=== PATIENT | male | born 1955 | race Caucasian/White ===

== ENCOUNTER 2019-02-18 16:50 | Observation (INO) ==
[2019-02-18 17:25] LABS: Hematocrit 44.9 % (37.5-50.1); Hemoglobin 15.5 g/dL (12.9-16.9); Mean Corpuscular HGB Conc 34.5 g/dL (31.6-35.5); Mean Corpuscular Hemoglobin 30.8 pg (28.0-33.3); Mean Corpuscular Volume 89.3 fL (83.0-100.0); Platelet Count 172 K/mcL (140-400); Red Blood Count 5.03 M/mcL (4.19-5.50); Red Cell Distribution Width 12.4 % (11.5-14.5); White Blood Count 10.3 K/mcL (4.3-11.1)
[2019-02-18 17:33] LABS: INR 1.1; Prothrombin Time 12.3 Seconds (9.4-12.1)
[2019-02-18 17:36] LABS: Activated Partial Thrombo Time 30.6 Seconds (26.0-36.0)
[2019-02-18 17:49] LABS: BUN/Creatinine Ratio 24 (6-26); Blood Urea Nitrogen 20 mg/dL (8-23); Calcium 9.2 mg/dL (8.6-10.3); Carbon Dioxide 19 mEq/L (23-29); Chloride 100 mEq/L (98-107); Glucose 534 mg/dL (70-105); Osmolality,Calculated 297 (280-300); Potassium 4.7 mEq/L (3.5-5.1); Sodium 130 mEq/L (136-145); Troponin I < 0.03 ng/mL (< 0.04); eGFR For African Americans > 60 (> 60); eGFR For Non-African Americans > 60 (> 60)
[2019-02-18] MEDS ORDERED: 0.9 % Sodium Chloride 1,000 ML IVC ONE (18:15)
[2019-02-18] MEDS ORDERED: Insulin Human Regular 10 UNIT in 0.9 % Sodium Chloride 10 ML IV ONE (18:24)
--- NOTE | 2019-02-18 18:34 | Emergency Department Note ---
Disposition Clinical Impression: Ataxia, Stroke-like symptoms Disposition: Admitted As Inpatient Condition: Good Referrals: NONE,PCP [Primary Care Provider] - Forms: ED Satisfaction Letter, Work/School Release Time of Disposition: 19:40 General Adult HPI - General Chief complaint: ED General Medical Stated complaint: ams Time Seen by Provider: 02/18/19 16:56 Source: patient, family, EMS Mode of arrival: EMS Nursing Notes Reviewed: Yes Vital Signs Reviewed: Yes - History of Present Illness HPI Narrative: 64-year-old male presenting to the emergency department chief complaint of confusion. says this morning he woke up confused. Was seen earlier today and diagnosed with hypoglycemia due to his diabetes and discharged home. says that he still was not acting right. Around noon she found him at home and trying to use his insulin pen but was unable to use it because he did not know how it worked. She called EMS to bring him back to the hospital. When they arrived they asked him to sign his name and he uses the right hand even though he is left-handed. When he tried his left hand he was unable to find appropriately. Concern for strokelike symptoms and brought him here for further evaluation. Patient denies any complaints at this time. Denies any chest pain, shortness of breath or recent illnesses. Pain Scale: 0 - Related Data Allergies Allergy/AdvReac Type Severity Reaction Status Date / Time No Known Allergies Allergy Verified 02/18/19 10:20 All systems ED: reviewed and negative except as stated. Constitutional: Denies: fever Eyes: Reports: as per HPI ENT ED: Reports: as per HPI Cardiovascular: Denies: chest pain Respiratory: Denies: dyspnea Gastrointestinal: Denies: abdominal pain Genitourinary: Reports: as per HPI Musculoskeletal: Reports: as per HPI Integumentary: Reports: as per HPI Neurological: Reports: confusion Psychiatric: Reports: as per HPI Endocrine: Reports: as per HPI Hematological/Lymphatic: Reports: as per HPI Allergic/Immunologic: Reports: as per HPI Past Medical History - Past Medical History Attestation: Yes The following information was validated with the patient. Medical history: Reports: diabetes Psychiatric history: Reports: depression - Social History Smoking Status: Current every day smoker Smokeless Tobacco Status: No Alcohol use: Reports: none Drug use: Reports: none Physical Exam - General Limitations: no limitations General appearance: alert, in no apparent distress - Head Head exam: atraumatic, normocephalic, normal inspection - Eye Eye exam: Present: PERRL, EOMI. Absent: scleral icterus - ENT ENT exam: mucous membranes moist - Neck Neck exam: Present: full ROM - Chest Chest inspection: Present: symmetric chest wall rise - Respiratory Respiratory exam: Present: normal lung sounds bilaterally. Absent: respiratory distress, wheezes - Cardiovascular Cardiovascular exam: Present: regular rate, normal rhythm, normal heart sounds - Abdominal Exam Abdominal exam: Present: soft, Non-Tender. Absent: distention, guarding, rebound - Extremities Exam Extremities exam: Present: full ROM - Neurological Exam Neurological exam: Present: alert, oriented X3 - Psychiatric Psychiatric exam: Present: normal affect - Skin Skin exam: Present: warm Course Course Narrative: 64-year-old male presenting with ataxia and altered mental status. In the room he is alert and oriented 3 and hemodynamically stable. Not altered for me. His physical exam is concerning for ataxia on the left arm. NIH of 1. Otherwise physical exam is benign. Concern for stroke. Since patient woke up with these symptoms stroke alert was not called. We will perform a CT of the head and basic laboratory analysis. Disposition most likely admission but pending results. Patient agrees with this plan. - Reevaluation(s) Reevaluation #1: Patient CT shows no acute abnormality. Labs shows hyperglycemia but VBG does not show acidemia. We will plan to admit the patient to medicine for further evaluation of stroke like symptoms. Patient agrees with this plan. He remains alert and oriented 3 and hemodynamically stable. 10 units of insulin was also given. Vital Signs Temperature 99.2 F 02/18/19 16:57 Pulse Rate 95 02/18/19 16:57 Respiratory Rate 18 02/18/19 16:57 Blood Pressure 165/82 02/18/19 16:57 O2 Sat by Pulse Oximetry 97 02/18/19 16:57 Temperature 99.2 F 02/18/19 16:57 Pulse Rate 77 02/18/19 19:05 Respiratory Rate 18 02/18/19 19:05 Blood Pressure 134/76 02/18/19 19:05 O2 Sat by Pulse Oximetry 97 02/18/19 19:06 Oxygen Delivery Oxygen Delivery Room Air Medical Decision Making - Lab Data Result diagrams: 02/18/19 17:10 02/18/19 17:10 Lab Results 02/18/19 02/18/19 02/18/19 Range/Units 16:57 16:58 17:10 WBC 10.3 (4.3-11.1) K/mcL RBC 5.03 (4.19-5.50) M/mcL Hgb 15.5 (12.9-16.9) g/dL Hct 44.9 (37.5-50.1) % MCV 89.3 (83.0-100.0) fL MCH 30.8 (28.0-33.3) pg MCHC 34.5 (31.6-35.5) g/dL RDW 12.4 (11.5-14.5) % Plt Count 172 (140-400) K/mcL MPV 11.0 (9.4-12.4) fL PT (9.4-12.1) Seconds INR APTT (26.0-36.0) Seconds VBG pH (7.32-7.42) pH Units VBG pCO2 (41-51) mmHg VBG pO2 (25-50) mmHg VBG HCO3 (21-27) mEq/L Sodium (136-145) mEq/L Potassium (3.5-5.1) mEq/L Chloride (98-107) mEq/L Carbon Dioxide (23-29) mEq/L BUN (8-23) mg/dL Creatinine (0.70-1.30) mg/dL Est GFR ( Amer) (> 60) Est GFR (Non-Af Amer) (> 60) BUN/Creatinine Ratio (6-26) Glucose (70-105) mg/dL POC Glucose 453 H* 469 H* (70-99) mg/dL Calculated Osmolality (280-300) Calcium (8.6-10.3) mg/dL Troponin I (< 0.04) ng/mL Beta-Hydroxybutyric Acd (0.02-0.27) mmol/L Urine Color (Yellow) Urine Clarity (Clear) Urine pH (5.0-8.0) pH Units Ur Specific [place] (1.010-1.025) Urine Protein (Neg-Trace) mg/dL Urine Glucose (UA) (Normal) mg/dL Urine Ketones (Negative) mg/dL Urine Blood (Negative) Urine Nitrite (Negative) Urine Bilirubin (Negative) Urine Urobilinogen (Normal) mg/dL Ur Leukocyte Esterase (Negative) Ur Culture Indicated? (NO) 02/18/19 02/18/19 02/18/19 Range/Units 17:10 17:10 18:24 WBC (4.3-11.1) K/mcL RBC (4.19-5.50) M/mcL Hgb (12.9-16.9) g/dL Hct (37.5-50.1) % MCV (83.0-100.0) fL MCH (28.0-33.3) pg MCHC (31.6-35.5) g/dL RDW (11.5-14.5) % Plt Count (140-400) K/mcL MPV (9.4-12.4) fL PT 12.3 H (9.4-12.1) Seconds INR 1.1 APTT 30.6 (26.0-36.0) Seconds VBG pH (7.32-7.42) pH Units VBG pCO2 (41-51) mmHg VBG pO2 (25-50) mmHg VBG HCO3 (21-27) mEq/L Sodium 130 L (136-145) mEq/L Potassium 4.7 (3.5-5.1) mEq/L Chloride 100 (98-107) mEq/L Carbon Dioxide 19 L (23-29) mEq/L BUN 20 (8-23) mg/dL Creatinine 0.84 (0.70-1.30) mg/dL Est GFR ( Amer) > 60 (> 60) Est GFR (Non-Af Amer) > 60 (> 60) BUN/Creatinine Ratio 24 (6-26) Glucose 534 H* (70-105) mg/dL POC Glucose (70-99) mg/dL Calculated Osmolality 297 (280-300) Calcium 9.2 (8.6-10.3) mg/dL Troponin I < 0.03 (< 0.04) ng/mL Beta-Hydroxybutyric Acd 1.05 H (0.02-0.27) mmol/L Urine Color (Yellow) Urine Clarity (Clear) Urine pH (5.0-8.0) pH Units Ur Specific [place] (1.010-1.025) Urine Protein (Neg-Trace) mg/dL Urine Glucose (UA) (Normal) mg/dL Urine Ketones (Negative) mg/dL Urine Blood (Negative) Urine Nitrite (Negative) Urine Bilirubin (Negative) Urine Urobilinogen (Normal) mg/dL Ur Leukocyte Esterase (Negative) Ur Culture Indicated? (NO) 02/18/19 02/18/19 Range/Units 18:43 19:10 WBC (4.3-11.1) K/mcL RBC (4.19-5.50) M/mcL Hgb (12.9-16.9) g/dL Hct (37.5-50.1) % MCV (83.0-100.0) fL MCH (28.0-33.3) pg MCHC (31.6-35.5) g/dL RDW (11.5-14.5) % Plt Count (140-400) K/mcL MPV (9.4-12.4) fL PT (9.4-12.1) Seconds INR APTT (26.0-36.0) Seconds VBG pH 7.38 (7.32-7.42) pH Units VBG pCO2 36 L (41-51) mmHg VBG pO2 91 H (25-50) mmHg VBG HCO3 21 (21-27) mEq/L Sodium (136-145) mEq/L Potassium (3.5-5.1) mEq/L Chloride (98-107) mEq/L Carbon Dioxide (23-29) mEq/L BUN (8-23) mg/dL Creatinine (0.70-1.30) mg/dL Est GFR ( Amer) (> 60) Est GFR (Non-Af Amer) (> 60) BUN/Creatinine Ratio (6-26) Glucose (70-105) mg/dL POC Glucose (70-99) mg/dL Calculated Osmolality (280-300) Calcium (8.6-10.3) mg/dL Troponin I (< 0.04) ng/mL Beta-Hydroxybutyric Acd (0.02-0.27) mmol/L Urine Color Yellow (Yellow) Urine Clarity Clear (Clear) Urine pH 6.5 (5.0-8.0) pH Units Ur Specific [place] 1.030 H (1.010-1.025) Urine Protein Negative (Neg-Trace) mg/dL Urine Glucose (UA) >=1000 H (Normal) mg/dL Urine Ketones 40 H (Negative) mg/dL Urine Blood Negative (Negative) Urine Nitrite Negative (Negative) Urine Bilirubin Negative (Negative) Urine Urobilinogen Normal (Normal) mg/dL Ur Leukocyte Esterase Negative (Negative) Ur Culture Indicated? NO (NO) NIH Stroke Scale - Level of Consciousness LOC: Alert - LOC Questions LOC Questions: Answers both correctly - LOC Commands LOC Commands: Performs both correctly - Best Gaze Best Gaze: Normal - Visual Visual: No visual loss - Facial Palsy Facial Palsy: Normal - Motor Arms Motor Arm-Left: No drift for 10 seconds Motor Arm-Right: No drift for 10 seconds - Motor Legs Motor Leg-Left: No drift for 5 seconds Motor Leg-Right: No drift for 5 seconds - Limb Ataxia Limb Ataxia: Present in ONE limb - Sensory Sensory: Normal - Best Language Best Language: No aphasia - Dysarthria Dysarthria: Normal - Extinction and Inattention Extinction and Inattention: Normal - NIHSS Total Score NIHSS Total Score: 1
[2019-02-18 18:46] LABS: VBG HCO3 21 mEq/L (21-27); VBG PCO2 36 mmHg (41-51); VBG PH 7.38 pH Units (7.32-7.42); VBG PO2 91 mmHg (25-50)
[2019-02-18 19:22] LABS: Bilirubin,Urine Negative (Negative); Blood,Urine Negative (Negative); Clarity,Urine Clear (Clear); Color,Urine Yellow (Yellow); Glucose,Urine (UA) >=1000 mg/dL (Normal); Ketones,Urine 40 mg/dL (Negative); Leukocyte Esterase,Urine Negative (Negative); Nitrite,Urine Negative (Negative); PH,Urine 6.5 pH Units (5.0-8.0); Protein,Urine Negative (Neg-Trace); Urobilinogen,Urine Normal (Normal)
--- NOTE | 2019-02-18 19:41 | Emergency Department Note ---
Disposition Clinical Impression: Hyperglycemia CVA (cerebral vascular accident) Qualifiers: CVA mechanism: unspecified Qualified Code(s): I63.9 - Cerebral infarction, u nspecified Disposition: Admitted As Inpatient Condition: Good Referrals: NONE,PCP [Primary Care Provider] - Forms: ED Satisfaction Letter, Work/School Release Time of Disposition: 19:42 General Adult HPI - General Chief complaint: ED General Medical Stated complaint: ams Time Seen by Provider: 02/18/19 16:56 - History of Present Illness Pain Scale: 0 - Related Data Allergies Allergy/AdvReac Type Severity Reaction Status Date / Time No Known Allergies Allergy Verified 02/18/19 10:20 Past Medical History - Past Medical History Medical history: Reports: diabetes Psychiatric history: Reports: depression - Social History Smoking Status: Current every day smoker Smokeless Tobacco Status: No Alcohol use: Reports: none Drug use: Reports: none Physical Exam - General General appearance: alert, in no apparent distress Course Vital Signs Temperature 99.2 F 02/18/19 16:57 Pulse Rate 95 02/18/19 16:57 Respiratory Rate 18 02/18/19 16:57 Blood Pressure 165/82 02/18/19 16:57 O2 Sat by Pulse Oximetry 97 02/18/19 16:57 Temperature 99.2 F 02/18/19 16:57 Pulse Rate 77 02/18/19 19:05 Respiratory Rate 18 02/18/19 19:05 Blood Pressure 134/76 02/18/19 19:05 O2 Sat by Pulse Oximetry 97 02/18/19 19:06 Oxygen Delivery Oxygen Delivery Room Air Medical Decision Making - Lab Data Result diagrams: 02/18/19 17:10 02/18/19 17:10 Lab Results 02/18/19 02/18/19 02/18/19 Range/Units 16:57 16:58 17:10 WBC 10.3 (4.3-11.1) K/mcL RBC 5.03 (4.19-5.50) M/mcL Hgb 15.5 (12.9-16.9) g/dL Hct 44.9 (37.5-50.1) % MCV 89.3 (83.0-100.0) fL MCH 30.8 (28.0-33.3) pg MCHC 34.5 (31.6-35.5) g/dL RDW 12.4 (11.5-14.5) % Plt Count 172 (140-400) K/mcL MPV 11.0 (9.4-12.4) fL PT (9.4-12.1) Seconds INR APTT (26.0-36.0) Seconds VBG pH (7.32-7.42) pH Units VBG pCO2 (41-51) mmHg VBG pO2 (25-50) mmHg VBG HCO3 (21-27) mEq/L Sodium (136-145) mEq/L Potassium (3.5-5.1) mEq/L Chloride (98-107) mEq/L Carbon Dioxide (23-29) mEq/L BUN (8-23) mg/dL Creatinine (0.70-1.30) mg/dL Est GFR ( Amer) (> 60) Est GFR (Non-Af Amer) (> 60) BUN/Creatinine Ratio (6-26) Glucose (70-105) mg/dL POC Glucose 453 H* 469 H* (70-99) mg/dL Calculated Osmolality (280-300) Calcium (8.6-10.3) mg/dL Troponin I (< 0.04) ng/mL Beta-Hydroxybutyric Acd (0.02-0.27) mmol/L Urine Color (Yellow) Urine Clarity (Clear) Urine pH (5.0-8.0) pH Units Ur Specific [place] (1.010-1.025) Urine Protein (Neg-Trace) mg/dL Urine Glucose (UA) (Normal) mg/dL Urine Ketones (Negative) mg/dL Urine Blood (Negative) Urine Nitrite (Negative) Urine Bilirubin (Negative) Urine Urobilinogen (Normal) mg/dL Ur Leukocyte Esterase (Negative) Ur Culture Indicated? (NO) 02/18/19 02/18/19 02/18/19 Range/Units 17:10 17:10 18:24 WBC (4.3-11.1) K/mcL RBC (4.19-5.50) M/mcL Hgb (12.9-16.9) g/dL Hct (37.5-50.1) % MCV (83.0-100.0) fL MCH (28.0-33.3) pg MCHC (31.6-35.5) g/dL RDW (11.5-14.5) % Plt Count (140-400) K/mcL MPV (9.4-12.4) fL PT 12.3 H (9.4-12.1) Seconds INR 1.1 APTT 30.6 (26.0-36.0) Seconds VBG pH (7.32-7.42) pH Units VBG pCO2 (41-51) mmHg VBG pO2 (25-50) mmHg VBG HCO3 (21-27) mEq/L Sodium 130 L (136-145) mEq/L Potassium 4.7 (3.5-5.1) mEq/L Chloride 100 (98-107) mEq/L Carbon Dioxide 19 L (23-29) mEq/L BUN 20 (8-23) mg/dL Creatinine 0.84 (0.70-1.30) mg/dL Est GFR ( Amer) > 60 (> 60) Est GFR (Non-Af Amer) > 60 (> 60) BUN/Creatinine Ratio 24 (6-26) Glucose 534 H* (70-105) mg/dL POC Glucose (70-99) mg/dL Calculated Osmolality 297 (280-300) Calcium 9.2 (8.6-10.3) mg/dL Troponin I < 0.03 (< 0.04) ng/mL Beta-Hydroxybutyric Acd 1.05 H (0.02-0.27) mmol/L Urine Color (Yellow) Urine Clarity (Clear) Urine pH (5.0-8.0) pH Units Ur Specific [place] (1.010-1.025) Urine Protein (Neg-Trace) mg/dL Urine Glucose (UA) (Normal) mg/dL Urine Ketones (Negative) mg/dL Urine Blood (Negative) Urine Nitrite (Negative) Urine Bilirubin (Negative) Urine Urobilinogen (Normal) mg/dL Ur Leukocyte Esterase (Negative) Ur Culture Indicated? (NO) 02/18/19 02/18/19 Range/Units 18:43 19:10 WBC (4.3-11.1) K/mcL RBC (4.19-5.50) M/mcL Hgb (12.9-16.9) g/dL Hct (37.5-50.1) % MCV (83.0-100.0) fL MCH (28.0-33.3) pg MCHC (31.6-35.5) g/dL RDW (11.5-14.5) % Plt Count (140-400) K/mcL MPV (9.4-12.4) fL PT (9.4-12.1) Seconds INR APTT (26.0-36.0) Seconds VBG pH 7.38 (7.32-7.42) pH Units VBG pCO2 36 L (41-51) mmHg VBG pO2 91 H (25-50) mmHg VBG HCO3 21 (21-27) mEq/L Sodium (136-145) mEq/L Potassium (3.5-5.1) mEq/L Chloride (98-107) mEq/L Carbon Dioxide (23-29) mEq/L BUN (8-23) mg/dL Creatinine (0.70-1.30) mg/dL Est GFR ( Amer) (> 60) Est GFR (Non-Af Amer) (> 60) BUN/Creatinine Ratio (6-26) Glucose (70-105) mg/dL POC Glucose (70-99) mg/dL Calculated Osmolality (280-300) Calcium (8.6-10.3) mg/dL Troponin I (< 0.04) ng/mL Beta-Hydroxybutyric Acd (0.02-0.27) mmol/L Urine Color Yellow (Yellow) Urine Clarity Clear (Clear) Urine pH 6.5 (5.0-8.0) pH Units Ur Specific [place] 1.030 H (1.010-1.025) Urine Protein Negative (Neg-Trace) mg/dL Urine Glucose (UA) >=1000 H (Normal) mg/dL Urine Ketones 40 H (Negative) mg/dL Urine Blood Negative (Negative) Urine Nitrite Negative (Negative) Urine Bilirubin Negative (Negative) Urine Urobilinogen Normal (Normal) mg/dL Ur Leukocyte Esterase Negative (Negative) Ur Culture Indicated? NO (NO) Attestation Statement - Attestation Attestation: I reviewed the residents documentation and agree with the residents assessment and plan of care. I have personally had face to face time with the patient. (Brief History, Brief Exam, and MDM) I personally supervised and was present for the root/critical portions of the following procedures completed by the resident: 64 year old male presents to the ED with complaints of altered mental status and ataxia with inability to write his name. He was here earlier today for altered mental status and possible hypoglycemia but has not had a a recorded blood glucose below 200. During his second visit there is concerns for a posterior stroke and heis otherwise hyperglycemic without a gap or acidotic. CT head is negative. We will admit to medicine for stroke workup
[2019-02-18] MEDS ORDERED: Aspirin 325 MG TABLET PO ONE (19:52)
[2019-02-18] MEDS ORDERED: Naloxone 0.4 MG/ML INJ IVP PRN (21:19)
--- NOTE | 2019-02-18 21:19 | Internal Med History&Physical ---
<Ashlee Morse Bravo - Last Filed: 02/19/19 02:18> Date of Encounter: 02/19/19 Time of Encounter: 20:30 Internal Medicine - H&P: HPI Chief complaint: Confusion History of present illness: Mr. Munoz is a 64 year old male with type 1 diabetes who returns to the hospital with his after recent discharge for hypoglycemia. Patient's states that when they were discharged patient was back to baseline. Although when they where home and patient woke up in the afternoon confused. Patient's handed him Satanta and he was confused as to how to put the contents on his Satanta. After lunch patient checked his blood sugar and found it to be in the 200s. he took his insulin and they went out for ice cream. Patient ate the ice cream without incident. He and denied dysphagia, dysarthria, or falls. Although throughout the day he has been walking rather cautiously. On arrival home he checked his blood glucose again and found it be elevated in the 400s. He attempted to use the syringe and vial to administer his insulin and noticed he was confused and was spatially disoriented with the items. decided to call EMS at this time due to this ongoing confusion with ADLs. On interview patient was defensive as to why he was taken to the hospital and believes his is over reacting, but prior to 's arrival patient was unable to remember events of the day prior to arrival to the hospital. He will be admitted for further workup of stroke like symptoms and hyperglycemia. Past Med Surg Social Fam HX - Past Medical History Medical history: diabetes Psychiatric history: depression - Social History Smoking Status: Current every day smoker Smokeless Tobacco Status: No Alcohol use: none Drug use: none Internal Medicine - H&P: Meds Atorvastatin [Lipitor] 20 mg PO HS 02/18/19 [History] Insulin DETEMIR [Levemir] 48 unit SQ HS 02/18/19 [History] Insulin LISPRO [HumaLOG] 0 units SQ TIDWM 02/18/19 [History] Allergy/AdvReac Type Severity Reaction Status Date / Time No Known Allergies Allergy Verified 02/18/19 10:20 All Systems PM: A 10-system review of systems was performed and is negative for pertinent findings except as documented above in the HPI. Review of systems: Constitutional: Denies Fever, Chills, Headache, Dizziness, falls, sick contacts or recent sickness. Respiratory: Denies Shortness of breath, Chronic cough, hemoptysis, Dyspnea at rest, or activity Cardiovascular: Denies Chest pain, Syncope, Peripheral edema , palpitations Gastrointestinal: Denies hematochezia, Abdominal pain, nausea, vomiting Genitourinary: Denies Painful urination, hematuria, urinary retention Endocrine: denies unintentional Significant weight changes Skin: Denies rashes, or unexplained bruising - Constitutional Vitals: Temp Pulse Resp BP Pulse Ox 99.2 F 76 16 144/83 97 02/18/19 16:57 02/18/19 21:14 02/18/19 21:14 02/18/19 21:14 02/18/19 21:14 Exam: Gen: alert/oriented, appears as stated age, no acute distress although irritable. Head: atraumatic, normocephalic. ENT: no oropharyngeal erythema, ISIDRO, EOMI although difficulty with downward left lateral gaze, mucous membranes moist. Neck: No thyromegaly appreciated. Neck supple no cervical lymphadenopathy. FROM in cervical spine, no cervical spinal tenderness. Resp: CTAB, no wheezing, rhonchi, or rhales. CV: RRR, Normal S1 and S2. No murmur, gallops, or rubs. GI/Abdominal exam: bowel sounds throughout, mildly obese, palpable abdominal pulse, soft, non-tender, non-distended; no hepatosplenomegaly Skin: intact; no rashes, lesions, or bruising. Ext: No cyanosis or edema. pulses +2/4 bilaterally UE and LE. Neuro: Strength: 5/5 in UE and LE b/l; Decreased sensation in L hand (C6 dermatome), sensation intact LE b/l. DTR +2/4 UE and LE b/l. Internal Med - H&P Results - Labs CBC & Chem 7: 02/18/19 17:10 02/18/19 17:10 Labs: Short CBC 02/18/19 Range/Units 17:10 WBC 10.3 (4.3-11.1) K/mcL Hgb 15.5 (12.9-16.9) g/dL Hct 44.9 (37.5-50.1) % Plt Count 172 (140-400) K/mcL BMP 02/18/19 17:10 Sodium 130 L Potassium 4.7 Chloride 100 Carbon Dioxide 19 L BUN 20 Creatinine 0.84 Glucose 534 H* Calcium 9.2 Cardiac Enzymes 02/18/19 Range/Units 17:10 Troponin I < 0.03 (< 0.04) ng/mL Urine 02/18/19 Range/Units 19:10 Urine Color Yellow (Yellow) Urine Clarity Clear (Clear) Urine pH 6.5 (5.0-8.0) pH Units Ur Specific [place] 1.030 H (1.010-1.025) Urine Protein Negative (Neg-Trace) mg/dL Urine Glucose (UA) >=1000 H (Normal) mg/dL - ABG Interpretation ABG results: 02/18/19 18:43 VBG pH 7.38 VBG pCO2 36 L VBG pO2 91 H VBG HCO3 21 - Impressions ITS Impressions Head CT 02/18/19 17:00 IMPRESSION: No acute intracranial abnormality. D/ / Rajat Jon MD / Rajat Jon MD Interpreting Provider: Rajat Jon MD - Assessment and Plan (1) Stroke-like symptoms Current Visit: Yes Status: Acute Assessment and plan: Patient is a 64-year-old male with type 1 diabetes presented with altered mental status, currently there is concern for CVA, TIA, intoxication, HHS, DKA. We will obtain studies to rule out these concerns. On arrival to the ED head CT was obtained which showed no acute intracranial abnormalities. Plan: - Telemetry, pulse ox - Brain MRI to rule out ischemic etiology - Transthoracic echo - Carotid Doppler - EKG and troponins in the morning. - CBC and CMP in the morning. - Urine tox screen. - Aspirin 325 mg in the morning. - Based on MRI results and echo results will consider consult to neurology and cardiology. (2) Hyperglycemia Current Visit: Yes Status: Acute Assessment and plan: Patient is a 64-year-old male with type 1 diabetes diagnosed 5 years ago. On ar rival his [id number] glucose was 453. His U/A was found to have high amounts of ketones and glucose but negative for signs of infection. His serum chemistry was found to have increased serum beta hydroxybutyric acid of 1.05, although his VBG and his serum osmolality was within normal limits. Hematology was within normal limits showing no signs of infection. On arrival to the ED he was given 10 units of Humulin and his blood glucose is found it accordingly. We will continue to rule out causes of hyperglycemia including HHS versus DKA, infection although patient does not currently fit all criteria for both diagnoses. Plan: - Obtain hemoglobin A1c - Obtain lipid panel - Accu-Chek every 2H - 1 L normal saline - Sliding-scale insulin, to cover Accu-Chek every 2H - Basal insulin at bedtime - Monitor potassium, magnesium with serum chemistry for a.m. (3) Diabetes Current Visit: Yes Status: Acute Assessment and plan: We will treat with sliding scale insulin to maintain tight control of serum glucose. Qualifiers: Qualified Code(s): E10.65 - Type 1 diabetes mellitus with hyperglycemia (4) Palpable abdominal aorta Current Visit: Yes Status: Acute Assessment and plan: On physical exam abdominal aorta was palpable and pulsatile. Patient denies back pain or history of hyperlipidemia. Although patient is a current 1 pack per day smoker for 40 years. Currently is not of stated age to screen for abdominal aortic aneurysms although due to patient's long-standing history of tobacco use and BMI patient should establish care with a PCP and follow up regarding screening for abdominal aortic aneurysm. - Time Spent With Patient Total time spent is greater than 50% in coordination of care (as documented) at patient's floor/unit and/or counseling patient: <Carina Bergmanabdullahi Alvarado - Last Filed: 02/19/19 09:39> Date of Encounter: 02/18/19 Internal Medicine - H&P: HPI History of present illness: Mr. Munoz is a 64 year old male All Systems PM: A 10-system review of systems was performed and is negative for pertinent findings except as documented above in the HPI. - Constitutional Vitals: Temp Pulse Resp BP Pulse Ox 97.9 F 75 16 130/74 93 02/19/19 06:27 02/19/19 06:27 02/19/19 06:27 02/19/19 06:27 02/19/19 06:27 Internal Med - H&P Results - Labs CBC & Chem 7: 02/19/19 04:07 02/19/19 04:07 Labs: Short CBC 02/18/19 02/19/19 Range/Units 17:10 04:07 WBC 10.3 8.2 (4.3-11.1) K/mcL Hgb 15.5 15.1 (12.9-16.9) g/dL Hct 44.9 44.2 (37.5-50.1) % Plt Count 172 150 (140-400) K/mcL Neutrophils # 4.4 (1.6-8.9) K/mcL BMP 02/18/19 02/19/19 17:10 04:07 Sodium 130 L 136 Potassium 4.7 3.8 Chloride 100 111 H Carbon Dioxide 19 L 20 L BUN 20 15 Creatinine 0.84 0.62 L Glucose 534 H* 173 H Calcium 9.2 8.7 Cardiac Enzymes 02/18/19 02/18/19 02/19/19 Range/Units 17:10 22:30 04:07 Troponin I < 0.03 < 0.03 < 0.03 (< 0.04) ng/mL Liver Function 02/19/19 Range/Units 04:07 Total Bilirubin 1.2 H (0.3-1.0) mg/dL AST 19 (13-39) Units/L ALT 16 (7-52) Units/L Alkaline Phosphatase 64 (34-104) Units/L Albumin 3.7 (3.5-5.7) g/dL Urine 02/18/19 Range/Units 19:10 Urine Color Yellow (Yellow) Urine Clarity Clear (Clear) Urine pH 6.5 (5.0-8.0) pH Units Ur Specific [place] 1.030 H (1.010-1.025) Urine Protein Negative (Neg-Trace) mg/dL Urine Glucose (UA) >=1000 H (Normal) mg/dL - ABG Interpretation ABG results: 02/18/19 18:43 VBG pH 7.38 VBG pCO2 36 L VBG pO2 91 H VBG HCO3 21 - Impressions ITS Impressions Head CT 02/18/19 17:00 IMPRESSION: No acute intracranial abnormality. D/ / Rajat Jon MD / Rajat Jon MD Interpreting Provider: Rajat Jon MD - Time Spent With Patient Total time spent is greater than 50% in coordination of care (as documented) at patient's floor/unit and/or counseling patient: - Attending Attestation I performed a history and physical examination of the patient and discussed their management with the resident. I reviewed the resident's note and agree with the documented plan of care.
[2019-02-18] MEDS ORDERED: *HR* Dextrose 50 % in Water (Syg) 50 ML SYRINGE IVP PRN (21:21)
[2019-02-18] MEDS ORDERED: D5% in Water 1,000 ML IVC PRN (21:21)
[2019-02-18] MEDS ORDERED: Dextrose Gel 15 GM/37.5 ML TUBE PO PRN (21:21)
[2019-02-18] MEDS ORDERED: Acetaminophen 325 MG TABLET PO PRN (21:24)
[2019-02-18] MEDS ORDERED: 0.9 % Sodium Chloride 1,000 ML IVC SCH (23:15)
[2019-02-18 23:19] LABS: Estimated Average Glucose 151 mg/dl
[2019-02-18] MEDS: Insulin DETEMIR 100 UNIT/ML X5UNITS SQ SCH (23:28)
[2019-02-19] MEDS: Insulin LISPRO 300 UNITS/3 ML VIAL SQ SCH ×4 (00:47→06:14)
[2019-02-19 04:18] LABS: Basophils # 0.1 K/mcL (0.0-0.2); Basophils % 0.6 %; Eosinophils # 0.1 K/mcL (0.0-0.6); Eosinophils % 1.5 %; Hematocrit 44.2 % (37.5-50.1); Hemoglobin 15.1 g/dL (12.9-16.9); Immature Granulocytes % 0.4 % (0-4); Lymphocytes % 36.3 %; Mean Corpuscular HGB Conc 34.2 g/dL (31.6-35.5); Mean Corpuscular Volume 90.8 fL (83.0-100.0); Mean Platelet Volume 10.3 fL (9.4-12.4); Monocytes # 0.6 K/mcL (0.0-1.3); Monocytes % 7.7 %; Neutrophils # 4.4 K/mcL (1.6-8.9); Platelet Count 150 K/mcL (140-400); Red Blood Count 4.87 M/mcL (4.19-5.50); Red Cell Distribution Width 12.2 % (11.5-14.5); Segmented Neutrophils % 53.5 %; White Blood Count 8.2 K/mcL (4.3-11.1)
[2019-02-19 04:38] LABS: Alanine Aminotransferase 16 Units/L (7-52); Albumin 3.7 g/dL (3.5-5.7); Albumin/Globulin Ratio 1.8 (1.1-2.2); Alkaline Phosphatase 64 Units/L (34-104); Aspartate Amino Transferase 19 Units/L (13-39); BUN/Creatinine Ratio 24 (6-26); Bilirubin,Total 1.2 mg/dL (0.3-1.0); Blood Urea Nitrogen 15 mg/dL (8-23); Calcium 8.7 mg/dL (8.6-10.3); Carbon Dioxide 20 mEq/L (23-29); Chloride 111 mEq/L (98-107); Globulin 2.1 g/dL (2.4-3.5); Glucose 173 mg/dL (70-105); Osmolality,Calculated 287 (280-300); Potassium 3.8 mEq/L (3.5-5.1); Sodium 136 mEq/L (136-145); Total Protein 5.8 g/dL (6.4-8.9); Triglycerides 58 mg/dL (< 150); eGFR For African Americans > 60 (> 60); eGFR For Non-African Americans > 60 (> 60)
[2019-02-19 04:39] LABS: Chol/HDL Ratio 2.4 (0-4.9); Cholesterol 96 mg/dL (< 200); HDL Cholesterol 40 mg/dL (40-59); LDL Cholesterol,Calculated 44 mg/dL (0-99)
[2019-02-19] MEDS: Dextrose Gel 15 GM/37.5 ML TUBE PO PRN ×2 (05:24→06:06)
[2019-02-19] MEDS ORDERED: Insulin LISPRO 300 UNITS/3 ML VIAL SQ SCH ×2 (07:30→21:00)
--- NOTE | 2019-02-19 19:35 | Internal Med Progress Note ---
Hospitalist Progress Note - Encounter Date of Encounter: 02/19/19 Time of Encounter: 13:00 - Subjective Interval History: Mr Munoz does report erratic eating habits due to his work schedule-he works at [employer]. 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 He was requested to be discharged citing he did not want the MRI due to cost. After much deliberation with the patient and his he is not agreeable to the MRI. His became tearful during the encounter citing that she was quite concern about his well-being hence she brought him to evaluated because patient was not acting like his usual self. GEN: Denies fever, chills or malaise HEENT: Denies headache blurriness, or dysphagia RESP: Denies SOB or cough CV: Denies chest pain or palpitations GI: Denies Nausea, vomiting, diarrhea or constipation Reviewed current in hospital medications with modifications see orders Reviewed Routine labs - Exam Vitals: Temp Pulse Resp BP Pulse Ox 97.4 F L 79 16 145/89 93 02/19/19 19:22 02/19/19 19:22 02/19/19 19:22 02/19/19 19:22 02/19/19 19:22 Exam: GENERAL: NAD, A&O x3, initially was irritable and uncooperative, at his bedside SKIN: No skin lesions or rashes, non-jaundiced EYES: EOMI, PERRLA, no sclera icterus HENT: Head atraumatic, no facial asymmetry, frontal and maxillary sinus non- tender, normal hearing, oropharynx and mucosa moist and without any exudates NECK: No cervical lymphadenopathy, trachea midline, thyroid is palpable does not appear enlarged LUNGS: vesicular breath sounds, clear to auscultation, no wheeze, rhonchi, rales or crackles. Non labored respirations HEART: Normal rate and rhythm, no murmurs or rubs ABDOMEN: soft, non-tender, non-distended, bowel sounds x 4 normoactive EXTRMITIES: No LE asymmetry, No LE edema, pedal pulses 1+ and radial pulses 2 + and equal bilaterally NEURO: Speech and comprehension appears intact. Cranial nerve II-XII grossly intact as examined. PSYCH: Cooperative, non- anxious or irritable, mood and affect is appropriate - Assessment and Plan (1) Diabetes Current Visit: Yes Status: Acute Assessment and Plan: Patient appears to have erratic eating habits due to his work schedule and also poor ejection technique. His hemoglobin A1c of 6.9 does not give a clear picture of his glycemic control since he admits to highs of 400 and lows of 60s. Educated patient on injection techniques and eating habits. We will manages her diabetes with Levemir 24 units twice daily in addition to scheduled short- acting insulin rather in the sliding scale he is on. He was told to make sure he keeps a scheduled eating habits so his insulin therapy can be titrated to avoid hyperglycemia and hypoglycemia. Of note initial insulin admission was 534 he dropped down to low 50s, blood glucose so far has been 117, 139, 200 with his new regimen in the past 12 hours (2) DKA (diabetic ketoacidoses) Current Visit: Yes Status: Acute Assessment and Plan: Resolved suspect nonadherence to treatment plan (3) Encephalopathy acute Current Visit: Yes Status: Acute Assessment and Plan: In the setting of DKA however patient was evaluated for possible stroke. Physical exam including neuro exam was unremarkable CT/MRI of the brain was negative for stroke does reveal mild chronic small vessel ischemic white matter disease with diffuse cerebral volume loss. Would increase his atorvastatin to high density study in therapy and add aspirin (4) Hypertension Current Visit: Yes Status: Acute Assessment and Plan: Resume his losartan (5) DVT prophylaxis Current Visit: Yes Status: Acute Assessment and Plan: Heparin per protocol - Time Spent with Patient Total time spent is greater than 50% in coordination of care (as documented) at patient's floor/unit and/or counseling patient: Internal Medicine: Result - Labs CBC & Chem 7: 02/19/19 04:07 02/19/19 04:07 Labs: Short CBC 02/19/19 Range/Units 04:07 WBC 8.2 (4.3-11.1) K/mcL Hgb 15.1 (12.9-16.9) g/dL Hct 44.2 (37.5-50.1) % Plt Count 150 (140-400) K/mcL Neutrophils # 4.4 (1.6-8.9) K/mcL BMP 02/19/19 04:07 Sodium 136 Potassium 3.8 Chloride 111 H Carbon Dioxide 20 L BUN 15 Creatinine 0.62 L Glucose 173 H Calcium 8.7 Cardiac Enzymes 02/18/19 02/19/19 Range/Units 22:30 04:07 Troponin I < 0.03 < 0.03 (< 0.04) ng/mL Liver Function 02/19/19 Range/Units 04:07 Total Bilirubin 1.2 H (0.3-1.0) mg/dL AST 19 (13-39) Units/L ALT 16 (7-52) Units/L Alkaline Phosphatase 64 (34-104) Units/L Albumin 3.7 (3.5-5.7) g/dL - ABG Interpretation ABG results: PT/INR, D-dimer PT 12.3 Seconds (9.4-12.1) H 02/18/19 17:10 - Impressions Impressions Brain MRI 02/18/19 21:24 IMPRESSION: No acute infarct, intracranial hemorrhage, or significant mass effect. Mild amount of chronic small vessel ischemic white matter disease. Mild diffuse cerebral volume loss. Nonspecific bilateral mastoid opacification. D/ / 02/19/2019 16:35:06 Deonte Masterson MD / earnold Interpreting Provider: Deonte Masterson MD Echocardiogram 02/18/19 21:29 Impressions: LVEF 60-65%. Normal LV chamber size, wall thickness and function. Mild left ventricular diastolic dysfunction. Normal right ventricular structure and function. Unable to estimate RVSP due to lack of TR jet. No significant valvular dysfunction. Left Ventricular Wall Motion: Rest Echo Findings All wall segments showed normal motion. Findings: Study Quality * Technically adequate exam. ECG Findings * Normal sinus rhythm. Left Ventricle * LVEF 60-65%. * Normal LV chamber size, wall thickness and function. * Mild left ventricular diastolic dysfunction. Right Ventricle * Normal right ventricular structure and function. Left Atrium * Normal left atrial size. Right Atrium * Normal right atrial size. Interatrial Septum * No evidence of a PFO by color Doppler. Aortic Valve * Trileaflet aortic valve with normal function. * No aortic regurgitation. * No aortic stenosis. Mitral Valve * Normal mitral valve structure and function. * No mitral stenosis. * Trace mitral regurgitation. Tricuspid Valve * Normal tricuspid valve structure and function. * No tricuspid regurgitation. * Unable to estimate RVSP due to lack of TR jet. Pulmonic Valve * Normal pulmonic valve structure and function. * No pulmonic regurgitation. Aorta * Normally sized aortic root. Pericardium * The pericardium appears normal. * Appearance is consistent with a {type} mitral valve replacement. Function appears {function{. IVC * Normal IVC dimensions and inspiratory collapse. Pulmonary Artery * Normal visualized portions of the main pulmonary artery. Consult Discharge Plan - Plan Referrals: NONE,PCP [Primary Care Provider] - (1) Diabetes Qualifiers: Diabetes mellitus type: type 1 Diabetes mellitus complication status: with ketoacidosis Diabetes mellitus complication detail: without coma Qualified Code(s): E10.10 - Type 1 diabetes mellitus with ketoacidosis without coma
[2019-02-19] MEDS ORDERED: Insulin DETEMIR 100 UNIT/ML X5UNITS SQ SCH (21:00)
[2019-02-19] MEDS: *HR* Heparin 5,000 UNIT/ML VIAL SQ SCH (21:11)
[2019-02-19] MEDS: Insulin DETEMIR 100 UNIT/ML X5UNITS SQ SCH (21:18)
[2019-02-20 05:09] LABS: Basophils # 0.1 K/mcL (0.0-0.2); Basophils % 0.7 %; Eosinophils # 0.2 K/mcL (0.0-0.6); Eosinophils % 3.2 %; Hemoglobin 16.5 g/dL (12.9-16.9); Immature Granulocytes % 0.3 % (0-4); Lymphocytes # 2.5 K/mcL (0.6-4.6); Mean Corpuscular HGB Conc 35.1 g/dL (31.6-35.5); Mean Corpuscular Hemoglobin 30.8 pg (28.0-33.3); Mean Corpuscular Volume 87.7 fL (83.0-100.0); Mean Platelet Volume 11.2 fL (9.4-12.4); Monocytes # 0.5 K/mcL (0.0-1.3); Monocytes % 7.5 %; Neutrophils # 3.8 K/mcL (1.6-8.9); Platelet Count 166 K/mcL (140-400); Red Blood Count 5.36 M/mcL (4.19-5.50); Red Cell Distribution Width 11.9 % (11.5-14.5); Segmented Neutrophils % 53.3 %; White Blood Count 7.1 K/mcL (4.3-11.1)
[2019-02-20 05:26] LABS: BUN/Creatinine Ratio 24 (6-26); Blood Urea Nitrogen 16 mg/dL (8-23); Calcium 8.9 mg/dL (8.6-10.3); Carbon Dioxide 24 mEq/L (23-29); Chloride 103 mEq/L (98-107); Glucose 358 mg/dL (70-105); Magnesium 1.8 mg/dL (1.6-2.6); Osmolality,Calculated 294 (280-300); Potassium 4.2 mEq/L (3.5-5.1); Sodium 134 mEq/L (136-145); eGFR For African Americans > 60 (> 60); eGFR For Non-African Americans > 60 (> 60)
[2019-02-20] MEDS: *HR* Heparin 5,000 UNIT/ML VIAL SQ SCH (05:32)
[2019-02-20 07:19] VITALS: BP 136/86
--- NOTE | 2019-02-20 07:52 | Discharge Summary ---
- NOTES TO OUTPATIENT PROVIDER Notes to Outpatient Provider: Post hospital discharge for acute encephalopathy attribute it to diabetes ketoacidosis. Patient is non-adherence to treatment plan for his diabetes-erratic eating habits. He will benefit from outpatient diabetic education Date of Encounter: 02/20/19 Time of Encounter: 07:49 - Discharge Diagnosis (1) Diabetes Priority: Primary Status: Acute Assessment and Plan: We will discharge on Levemir 30 units twice a day, scheduled doses of Humalog 6 units 3 times a day. Patient appears to have erratic eating habits due to his work schedule and also poor ejection technique. His hemoglobin A1c of 6.9 does not give a clear picture of his glycemic control since he admits to highs of 400 and lows of 60s and this clinical scenario could also average to be A1c of 6.9. Educated patient on injection techniques and eating habits. We will manages her diabetes with Levemir 24 units twice daily in addition to scheduled short-acting insulin rather in the sliding scale he is on. He was told to make sure he keeps a scheduled eating habits so his insulin therapy can be titrated to avoid hyperglycemia and hypoglycemia. Of note initial insulin admission was 534 he dropped down to low 50s, blood glucose so far has been 117, 139, 200 with his new regimen in the past 12 hours Qualifiers: Diabetes mellitus type: type 1 Diabetes mellitus complication status: with ketoacidosis Diabetes mellitus complication detail: without coma Qualified Code(s): E10.10 - Type 1 diabetes mellitus with ketoacidosis without coma (2) DKA (diabetic ketoacidoses) Priority: Secondary Status: Acute Assessment and Plan: Resolved suspect nonadherence to treatment plan Qualifiers: Diabetes mellitus type: type 1 Diabetes mellitus complication detail: without coma Qualified Code(s): E10.10 - Type 1 diabetes mellitus with ketoacidosis without coma (3) Encephalopathy acute Priority: Secondary Status: Acute Assessment and Plan: In the setting of DKA however patient was evaluated for possible stroke. Physical exam including neuro exam was unremarkable CT/MRI of the brain was negative for stroke does reveal mild chronic small vessel ischemic white matter disease with diffuse cerebral volume loss. This findings was discussed with the patient and it was strongly encouraged to adhere to his dietary and medication compliance. Would increase his atorvastatin to high density study in therapy and add aspirin (4) Hypertension Priority: Secondary Status: Acute Assessment and Plan: Resume his losartan Qualifiers: Hypertension type: essential hypertension Qualified Code(s): I10 - Essential (primary) hypertension (5) DVT prophylaxis Priority: Secondary Status: Acute Assessment and Plan: Heparin per protocol, will be discharged today Hospital course: Mr. Munoz is a 64 year old male was hospitalized for acute encephalopathy workup included MRI and CT of the brain which were unremarkable for acute stroke. He was also noted to be in DKA. Overall patient appears to have nonadherence to treatment plan with regard erratic eating habits and injection techniques. He was educated on proper injection techniques with regard to rotation of his sites. 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 Atorvastatin [Lipitor] 40 mg PO HS #30 tablet Continued Losartan Potassium 25 mg PO DAILY Changed Insulin LISPRO [HumaLOG] 6 units SQ TIDWM #1 vial Insulin DETEMIR [Levemir] 30 unit SQ BID #20 mls Discontinued Atorvastatin [Lipitor] 20 mg PO HS Home Medications: Losartan Potassium 25 mg PO DAILY 02/19/19 [History] Aspirin Enteric Coated [Aspirin EC] 81 mg PO DAILY #30 tablet. 02/20/19 [Rx] Atorvastatin [Lipitor] 40 mg PO HS #30 tablet 02/20/19 [Rx] Insulin DETEMIR [Levemir] 30 unit SQ BID #20 mls 02/20/19 [Rx] Insulin LISPRO [HumaLOG] 6 units SQ TIDWM #1 vial 02/20/19 [Rx] Allergies/Adverse Reactions: Allergy/AdvReac Type Severity Reaction Status Date / Time No Known Allergies Allergy Verified 02/18/19 10:20 Date of admission: 02/18/19 20:50 Primary care physician: PCP NONE Consults: 02/18/19 21:21 Consult to Diabetes Education [CONS] Routine Comment: Reason for Consult: hyperglycemia, ams Discharging clinician: Christina Connell Anticipated date of discharge: 02/20/19 - Constitutional Vitals: Temp Pulse Resp BP Pulse Ox 98.2 F 63 14 136/86 95 02/20/19 07:17 02/20/19 07:17 02/20/19 07:17 02/20/19 07:17 02/20/19 03:59 Exam: GEN: NAD, A&O x 3, Pleasant and conversant SKIN: [place] warm acyanotic not jaundice HEART: RRR, no murmurs LUNGS: CTA no wheeze or crackles, overall non labored ABDOMEN; Soft, non tender or distended, BS x 4 normactive EXT: No LE edema, Pedal pulses 1+, radial pulses 2+ PSYCH: Mood and affect is appropriate - Patient Status Disposition: Home, Self-Care Condition: Good Functional capacity at discharge: independent ambulation Overall status at discharge: patient is back to baseline - Discharge Instructions Instructions: Diabetes Mellitus Type 2 in Adults (DC) Follow Up With: NONE,PCP [Primary Care Provider] - - Diet and Activity Activity: resume usual activities as tolerated Diet: diabetic diet, low fat, low cholesterol, low salt diet
[2019-02-20] MEDS ORDERED: Insulin DETEMIR 100 UNIT/ML X5UNITS SQ ONE (08:22)
[2019-02-20] MEDS ORDERED: Insulin LISPRO 300 UNITS/3 ML VIAL SQ ONE (08:23)
[2019-02-20] MEDS ORDERED: Aspirin Enteric Coated 81 MG Tablet PO SCH (09:00)
--- NOTE | 2019-02-20 23:00 | Electrocardiograph Report ---
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
--- NOTE | 2019-02-23 11:05 | Electrocardiograph Report ---
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
== END 2019-02-20 08:55 | disposition home or self-care (01) ==
LOC: EMEROOARM 16:50 → 2NENU 16:50 → SUATTDRO 20:50 → 2NENU 21:43
PROVIDERS: ADMIT Internal Medicine; ATTEND Pharmacist